=== PATIENT | male | born 1980 | race Caucasian/White ===

== ENCOUNTER 2020-08-30 11:38 | Emergency (ER) | payer MEDICAID, OTHER ==
[~2020-08-30] VITALS: Ht 175.3 cm; Wt 82.6 kg
[2020-08-30 11:50] VITALS: BP 142/75
--- NOTE | 2020-08-30 12:19 | NUR ---
40 Y/O MALE C/O FEVER X1 WEEK ACCOMPANIED WITH EXERTIONAL SOB AND NAUSEA. PATIENT STATES HE IS NOT SOB AT THE MOMENT. PT HAS BEEN TAKING THERAFLU FOR REOCCURING FEVER, LAST DOSE WAS 2 HOURS AGO. PT IS AFEBRILE AT THIS TIME. RESP EVEN AND UNLABORED. LUNG SOUNDS CLEAR IN BILAT LUNGS.PT WAS COVID TESTED YESTERDAY AT [facility] AND IS AWAITING RESULTS PMH: MA LAST YEAR NKDA
[2020-08-30 13:54] VITALS: BP 142/75
--- NOTE | 2020-08-30 13:55 | NUR ---
Patient discharged with v/s stable. Written and verbal after care instructions given and explained. Patient verbalized understanding. Ambulatory with steady gait. All questions addressed prior to discharge. Advised to follow up with PMD.
== END 2020-08-30 13:55 | disposition home or self-care (01) ==
LOC: MED 11:38
DX: R50.9 Fever, unspecified (principal); Z20.828 Contact with and (suspected) exposure to other viral communicable diseases
CPT/HCPCS: 71045; 99283

== ENCOUNTER 2021-11-27 12:50 | Emergency (ER) | payer BC, MEDICAID ==
[~2021-11-27] VITALS: Ht 165.1 cm; Wt 77.6 kg
[2021-11-27 13:59] VITALS: BP 135/78
[2021-11-27] MEDS ORDERED: KETOROLAC 30 MG/ML VIAL IM ONE (15:05)
[2021-11-27] MEDS ORDERED: CYCLOBENZAPRINE 10 MG TAB PO ONE (15:05)
[2021-11-27] MEDS ORDERED: DICL75EC11 PO (16:15)
[2021-11-27] MEDS ORDERED: METH-1681 PO (16:15)
[2021-11-27] MEDS ORDERED: KETOROLAC 30 MG/ML VIAL ONE (16:28)
[2021-11-27] MEDS ORDERED: CYCLOBENZAPRINE 10 MG TAB ONE (16:28)
--- NOTE | 2021-11-27 16:30 | NUR ---
41 y/o male c/o right shoulder pain that radiates to right pectoral mucscle for 4 weeks. pt denies any fall, injury or overexertion to ear. states its a pinching/biting pain and has limited rom of his arm. denies n/v/d. skin is pink/warm/dry/ aa&ox4 with even and steady gait, lungs clear bl, hr even and regular. pt denies any fever, cp, sob or cough at this time. pt states pain of 10/10 at this time. ermd made aware of pt status. pmh: denies nka med: ibuprofen 400mg
[2021-11-27 16:36] VITALS: BP 135/78
--- NOTE | 2021-11-27 16:37 | NUR ---
Patient discharged with v/s stable. Written and verbal after care instructions given and explained. Patient alert, oriented and verbalized understanding of instructions. Ambulatory with steady gait. All questions addressed prior to discharge. ID band removed. Patient advised to follow up with PMD. Rx of diclofenac, methocarbamol (script) given. Patient educated on indication of medication including possible reaction and side effects. Opportunity to ask questions provided and answered.
== END 2021-11-27 16:37 | disposition home or self-care (01) ==
LOC: MED 12:50
DX: S46.011A Strain of muscle(s) and tendon(s) of the rotator cuff of right shoulder, initial encounter (principal); X58.XXXA Exposure to other specified factors, initial encounter; Y93.89 Activity, other specified; Y92.89 Other specified places as the place of occurrence of the external cause; Y99.8 Other external cause status
CPT/HCPCS: 96372; 99283; J1885

== ENCOUNTER 2023-07-04 16:04 | Emergency (ER) | payer BC, MEDICAID ==
[~2023-07-04] VITALS: Ht 170.2 cm; Wt 70.3 kg
[~2023-07-04 16:04] MED LIST: DICL75EC11 PO; METH-1681 PO
[2023-07-04 16:37] VITALS: BP 142/80; PULSE 99; RESP 17; TEMP 97.4; O2SAT 98
[2023-07-04] MEDS ORDERED: FAMO-90 PO (16:49)
[2023-07-04] MEDS ORDERED: METO-485 PO (16:49)
[2023-07-04] MEDS ORDERED: METOCLOPRAMIDE 10 MG/2 ML INJ VIAL IM ONE (16:50)
--- NOTE | 2023-07-04 17:06 | NUR ---
42YO M PRESENTS W/ABD PAIN AND BODY DISCOMFORT DO TO HICCUPS X 9 DAYS. PT STATES HE TOOK OMEPRAZOLE WITHOUT RELIEF. PT STATES HIS CHEST WALL IS SORE FROM OFF AND ON HICCUPS. PT DENIES N,V,D,FEVER, CHILLS, FLU SYMPTOMS, LANDRY. NAD, [employer], CALL LIGHT IN REACH. HX: CHOLESTEROL, MINI-HEART ATTACK 5YRS AGO. NKA
--- NOTE | 2023-07-04 17:32 | NUR ---
Patient discharged with v/s stable. Written and verbal after care instructions given and explained. Patient alert, oriented and verbalized understanding of instructions. Ambulatory with steady gait. All questions addressed prior to discharge. ID band removed. Patient advised to follow up with PMD. Rx of PEPCID, REGLAN given. Patient educated on indication of medication including possible reaction and side effects. Opportunity to ask questions provided and answered.
--- NOTE | 2023-07-04 17:36 | NUR ---
The patient's care was reviewed and supervised by [facility], RN.
== END 2023-07-04 17:32 | disposition home or self-care (01) ==
LOC: MED 16:04
DX: R06.6 Hiccough (principal); K21.9 Gastro-esophageal reflux disease without esophagitis; Z79.899 Other long term (current) drug therapy
CPT/HCPCS: 96372; 99283; J2765